=== PATIENT | female | born 1970 | race Two or more races ===

== ENCOUNTER 2016-10-08 12:13 | Emergency (ER) | payer SELFPAY ==
[2016-10-08 12:27] VITALS: BP 158/83
[2016-10-08] MEDS ORDERED: HYDROcodone/APAP 5/325MG 1 TAB TABLET PO ONE (12:45)
[2016-10-08] MEDS ORDERED: AMOXICILLIN 250 MG CAPSULE. PO ONE (12:45)
--- NOTE | 2016-10-08 12:50 | PHYS DOC ---
Past Medical History Past Medical History: No Pertinent History Past Surgical History: No Surgical History Alcohol Use: None Drug Use: None Adult General Chief Complaint Chief Complaint: TOOTH ACHE OR PAIN HPI HPI Patient is a 46 year old female who presents with moderate left lower gum dental pain and swelling that began yesterday. She does not have a dentist. Patient denies any fever or trismus. Review of Systems Review of Systems Constitutional: Denies fever or chills [] Eyes: Denies change in visual acuity, redness, or eye pain [] HENT: Dental pain and swelling Musculoskeletal: Denies back pain or joint pain [] Integument: Denies rash or skin lesions [] Neurologic: Denies headache, focal weakness or sensory changes [] Endocrine: Denies polyuria or polydipsia [] Current Medications Current Medications Current Medications Medications (Trade) Dose Ordered Sig/Hui Start Time Stop Time Status Last Admin Dose Admin Acetaminophen/ Hydrocodone Bitart (Lortab 5/325) 2 tab 1X ONCE 10/08/16 12:45 10/08/16 12:46 DC 10/08/16 12:36 2 TAB Amoxicillin (Amoxil) 1,000 mg 1X ONCE 10/08/16 12:45 10/08/16 12:46 DC Allergies Allergies Allergies Coded Allergies Type Severity Reaction Last Updated Verified No Known Drug Allergies 10/08/16 No Physical Exam Physical Exam Constitutional: Well developed, well nourished, no acute distress, non-toxic appearance. [] HENT: Normocephalic, atraumatic, bilateral external ears normal, oropharynx moist, no oral exudates, nose normal. Left lower gum with obvious swelling consistent with a dental abscess. Severe dental decay throughout her teeth. Tooth #20 is broken and decayed. Mild left lower gum dental swelling noted. No fluctuance on the swollen area. Eyes: PERRLA, EOMI, conjunctiva normal, no discharge. [] Skin: Warm, dry, no erythema, no rash. [] Extremities: No tenderness, no cyanosis, no clubbing, ROM intact, no edema. [] Neurologic: Alert and oriented X 3, normal motor function, normal sensory function, no focal deficits noted. [] Psychologic: Affect normal, judgement normal, mood normal. [] Current Patient Data Vital Signs Vital Signs Date Time Temp Pulse Resp B/P (MAP) Pulse Ox O2 Delivery O2 Flow Rate FiO2 7/2/17 12:27 98.5 67 18 100 Room Air 98.5 EKG EKG [] Radiology/Procedures Radiology/Procedures [] Course & Med Decision Making Course & Med Decision Making Pertinent Labs and Imaging studies reviewed. (See chart for details) Patient is in the ED with severe infected dental caries and an abscess. Discharged with amoxicillin for 10 days. Provided a dental list for follow-up. Dragon Disclaimer Dragon Disclaimer This electronic medical record was generated, in whole or in part, using a voice recognition dictation system. Departure Departure Impression: Primary Impression: Dentalgia Additional Impressions: Infected dental caries Dental abscess Disposition: HOME, SELF-CARE Condition: STABLE Referrals: NO PCP (PCP) Follow-up with her dentist in the next 1-2 weeks. Patient Instructions: Dental Abscess, Dental Caries-Brief Additional Instructions: You were seen for dental caries and dental abscess. Take the prescribed antibiotics until completed. Take the pain medicine as needed for severe pain. Follow-up with the dentist from the provided dental list in the next 1-2 weeks. Scripts Amoxicillin (AMOXICILLIN) 875 Mg Tablet 1 TAB PO BID, #20 TAB Prov: LC PEREZ APRN 10/08/16 Hydrocodone/Ibuprofen (HYDROCODONE-IBUPROFEN 7.5-200 ) 1 Each Tablet 1 TAB PO PRN Q6HRS Y for PAIN, #14 TAB 0 Refills Prov: LC PEREZ APRN 10/08/16 Problem Qualifiers LC PEREZ APRN Oct 08, 2016 12:50
[2016-10-08] MEDS ORDERED: HYDR-79 PO (13:01)
[2016-10-08] MEDS ORDERED: AMOX875T PO (13:01)
== END 2016-10-08 13:20 | disposition home or self-care (01) ==
LOC: ER 12:13
DX: K02.9 Dental caries, unspecified (principal); K04.7 Periapical abscess without sinus
CPT/HCPCS: 99283